=== PATIENT | male | born 1975 | race Caucasian/White ===

== ENCOUNTER 2023-01-25 03:17 | Emergency (ER) | payer BC ==
[~2023-01-25] VITALS: Ht 167.6 cm; Wt 98.0 kg
[2023-01-25 03:20] VITALS: BP 129/80; PULSE 87; RESP 17; TEMP 97.9; O2SAT 97
[2023-01-25 04:08] LABS: FLU A ANTIGEN negative (NEGATIVE); FLU B ANTIGEN NEGATIVE (NEGATIVE)
[2023-01-25] MEDS ORDERED: BENZ200C4 PO (05:31)
[2023-01-25] MEDS ORDERED: [UNRECOGNIZED DRUG - CODE] PO (05:31)
[2023-01-25] MEDS ORDERED: FLONAS NS (05:31)
[2023-01-25] MEDS ORDERED: AMOX-1230 PO (05:31)
== END 2023-01-25 05:35 | disposition home or self-care (01) ==
LOC: MED 03:17
DX: J02.9 Acute pharyngitis, unspecified (principal); J01.90 Acute sinusitis, unspecified; H65.192 Other acute nonsuppurative otitis media, left ear; H92.02 Otalgia, left ear; R05.9 Cough, unspecified; Z20.822 Contact with and (suspected) exposure to COVID-19; R49.0 Dysphonia; Z79.899 Other long term (current) drug therapy
CPT/HCPCS: 99283